=== PATIENT | male | born 1975 | race Hispanic/Latino ===

== ENCOUNTER 2020-03-12 14:54 | Emergency (ER) | payer OTHER ==
[2020-03-12] MEDS ORDERED: Acetaminophen 500 MG TAB ONE (15:40)
[2020-03-13 15:30] LABS: SARS-CoV-2 MS2 Positive; SARS-CoV-2 N Gene Positive; SARS-CoV-2 S Gene Positive; SARS-CoV-2 orf1ab Positive
== END 2020-03-12 15:45 | disposition home or self-care (01) ==
LOC: NAV ERS 14:54
DX: U07.1 COVID-19 (principal)
CPT/HCPCS: 87635; 99283; U0003